=== PATIENT | male | born 1995 | race African-American/Black ===

== ENCOUNTER 2016-11-28 08:15 | Emergency (ER) | payer BC ==
[2016-11-28] MEDS ORDERED: Adacel (T-DAP) 0.5 ML VIAL ONE (08:32)
== END 2016-11-28 09:00 | disposition home or self-care (01) ==
LOC: NAV ERS 08:15
DX: S91.331A Puncture wound without foreign body, right foot, initial encounter (principal); I10 Essential (primary) hypertension; Z23 Encounter for immunization; W45.0XXA Nail entering through skin, initial encounter
CPT/HCPCS: 90471; 90715

== ENCOUNTER 2017-04-05 16:04 | Emergency (ER) | payer BC ==
--- NOTE | 2017-04-05 17:52 | RAD ---
RIGHT WRIST THREE VIEWS 04/05/17 HISTORY: Right wrist injury. COMPARISON: 11/25/13. FINDINGS: Joint spaces are preserved. No acute fracture, dislocation, or aggressive erosions are apparent. IMPRESSION: No acute osseous abnormalities are demonstrated. POS: H
== END 2017-04-05 16:45 | disposition home or self-care (01) ==
LOC: NAV ERS 16:04
DX: M25.531 Pain in right wrist (principal); G89.29 Other chronic pain; I10 Essential (primary) hypertension; X50.1XXA Overexertion from prolonged static or awkward postures, initial encounter

== ENCOUNTER 2017-06-10 22:31 | Emergency (ER) | payer BC ==
[2017-06-10] MEDS ORDERED: Ibuprofen 800 MG TAB ONE (22:54)
== END 2017-06-10 23:38 | disposition home or self-care (01) ==
LOC: NAV ERS 22:31
DX: B34.9 Viral infection, unspecified (principal); I10 Essential (primary) hypertension
CPT/HCPCS: 99283

== ENCOUNTER 2018-10-15 08:34 | Emergency (ER) | payer BC | END 2018-10-15 09:35 | disposition home or self-care (01) | LOC: NAV ERS 08:34 | DX: J02.9 Acute pharyngitis, unspecified (principal); I10 Essential (primary) hypertension; Z79.899 Other long term (current) drug therapy | CPT/HCPCS: 87081; 87430; 99283 ==

== ENCOUNTER 2020-12-18 15:18 | Emergency (ER) | payer BC ==
[2020-12-19 11:36] LABS: SARS-CoV-2 PCR by NAA Not Detected (NotDetected)
== END 2020-12-18 15:55 | disposition home or self-care (01) ==
LOC: NAV ERS 15:18
DX: R09.81 Nasal congestion (principal); I10 Essential (primary) hypertension; Z20.822 Contact with and (suspected) exposure to COVID-19
CPT/HCPCS: 99283; U0003; U0005

== ENCOUNTER 2021-08-14 10:33 | Emergency (ER) | payer BC ==
[~2021-08-14 10:33] MED LIST: Iopamidol 370 76% 100 ML VIAL ONE
[2021-08-14] MEDS ORDERED: Sodium Chloride 0.9% 1,000 ML ONE (11:40)
[2021-08-14] MEDS ORDERED: Metoclopramide HCl 10 MG/2 ML VIAL ONE (11:40)
[2021-08-14 12:09] LABS: ALT (SGPT) 37 U/L (8-55); AST (SGOT) 26 U/L (5-34); Albumin 4.5 g/dL (3.5-5.0); Alkaline Phosphatase 49 U/L (40-110); Anion Gap 14 mmol/L (10-20); BUN (Urea Nitrogen) 13 mg/dL (8.9-20.6); Bilirubin, Total 0.7 mg/dL (0.2-1.2); Calc. Creatinine Clearance 0 mL/min (70-130); Calcium 9.4 mg/dL (7.8-10.44); Carbon Dioxide 25 mmol/L (22-29); Chloride 102 mmol/L (98-107); Globulin 2.8 g/dL (2.4-3.5); Glucose 104 mg/dL (70-105); Lipase 25 U/L (8-78); Potassium 4.2 mmol/L (3.5-5.1); Protein, Total 7.3 g/dL (6.0-8.3); Sodium 137 mmol/L (136-145)
[2021-08-14 12:14] LABS: Bilirubin Negative (Negative); Blood, Urine Large (Negative); Clarity Slightly Cloudy (Clear); Glucose, Urine (Dipstick) Negative (Negative); Ketone, Urine Negative (Negative); Leukocyte Negative (Negative); Nitrite Negative (Negative); Protein, Urine (Dipstick) 30 mg/dL (Neg-Trace); Urobilinogen 0.2 mg/dL (Less than 2)
[2021-08-14 12:17] LABS: #Basophils 0.1 10x3/uL (0.0-0.2); #Eosinphils 0.2 10x3/uL (0.0-0.5); #Monocytes 0.4 10x3/uL (0.0-1.1); %Basophils 1.2 % (0.0-2.0); %Eosinophils 2.8 % (0.0-6.0); %Lymphocytes 28.1 % (18.0-47.0); %Neutrophils 61.7 % (40.0-75.0); Hemoglobin 15.4 g/dL (13.5-17.5); Mean Corpuscular HGB CONC 34.8 g/dL (32.0-36.0); Mean Corpuscular Hemoglobin 30.1 pg (27.0-33.0); Mean Corpuscular Volume 86.3 fl (81.2-95.1); Mean Platelet Volume 11.2 fl (7.4-10.4); Platelet Count 219 10x3/uL (150-450); RBC Distribution Width 13.1 % (11.5-14.5); Red Blood Cell (RBC) Count 5.12 10x6/uL (4.32-5.72); White Blood Cell (WBC) Count 6.5 10x3/uL (3.5-10.5)
[2021-08-14 12:20] LABS: #Lymphocytes 1.8 10x3/uL (0.7-4.9)
[2021-08-14 12:20] LABS: RBC/HPF Greater than 50 HPF (0-3); Squamous Epithelial 0-3 HPF (0-3); WBC/HPF 0-3 HPF (0-3)
[2021-08-14] MEDS ORDERED: Ketorolac Tromethamine 30 MG/ML VIAL ONE (13:13)
== END 2021-08-14 14:10 | disposition home or self-care (01) ==
LOC: NAV ERS 10:33
DX: R10.31 Right lower quadrant pain (principal); R31.9 Hematuria, unspecified; I10 Essential (primary) hypertension; Z79.899 Other long term (current) drug therapy
CPT/HCPCS: 74177; 80053; 81003; 81015; 83690; 85025; 96365; 96366; 96375; J1885; J2765; J7050; Q9967

== ENCOUNTER 2022-01-26 20:57 | Emergency (ER) | payer BC | END 2022-01-26 21:30 | disposition home or self-care (01) | LOC: NAV ERS 20:57 | DX: L03.031 Cellulitis of right toe (principal); I10 Essential (primary) hypertension; Z79.899 Other long term (current) drug therapy | CPT/HCPCS: 99283 ==

== ENCOUNTER 2023-05-19 11:15 | Emergency (ER) | payer BC, OTHER ==
[2023-05-19] MEDS ORDERED: Ibuprofen 800 MG TAB ONE (11:46)
== END 2023-05-19 12:17 | disposition home or self-care (01) ==
LOC: NAV ERS 11:15
DX: S50.01XA Contusion of right elbow, initial encounter (principal); I10 Essential (primary) hypertension; V40.9XXA Unspecified car occupant injured in collision with pedestrian or animal in traffic accident, initial encounter

== ENCOUNTER 2023-06-26 08:05 | Emergency (ER) | payer OTHER, SELFPAY ==
[2023-06-26 08:56] LABS: Bilirubin Negative (Negative); Blood, Urine Negative (Negative); Clarity Clear (Clear); Glucose, Urine (Dipstick) Negative (Negative); Ketone, Urine Negative (Negative); Leukocyte Negative (Negative); Nitrite Negative (Negative); Protein, Urine (Dipstick) 30 mg/dL (Neg-Trace); Urobilinogen 0.2 mg/dL (Less than 2)
[2023-06-26 09:09] LABS: Bacteria/HPF None Seen HPF (None Seen); CAUTI Indications for Culture Dysuria,urgency,freq; RBC/HPF None Seen HPF (0-3); Squamous Epithelial 0-3 HPF (0-3); WBC/HPF None Seen HPF (0-3)
[2023-06-26 09:10] LABS: Urine Culture Reflex No No
== END 2023-06-26 09:07 | disposition home or self-care (01) ==
LOC: NAV ERS 08:05
DX: N34.2 Other urethritis (principal); I10 Essential (primary) hypertension; Z79.899 Other long term (current) drug therapy
CPT/HCPCS: 81001; 99283

== ENCOUNTER 2025-04-30 14:03 | Emergency (ER) | payer BC, SELFPAY ==
[2025-04-30] MEDS ORDERED: Ibuprofen 800 MG TAB ONE (14:28)
[2025-04-30] MEDS ORDERED: cloNIDine 0.1 MG TAB ONE (15:18)
== END 2025-04-30 16:14 | disposition home or self-care (01) ==
LOC: NAV ERS 14:03
DX: J02.0 Streptococcal pharyngitis (principal); I10 Essential (primary) hypertension
CPT/HCPCS: 87428; 87430; 99283